=== PATIENT | female | born 1995 | race Caucasian/White ===

== ENCOUNTER 2022-09-01 01:19 | Emergency (ER) | payer SELFPAY ==
[~2022-09-01] VITALS: Ht 160 cm; Wt 64.5 kg
[2022-09-01 02:13] VITALS: BP 119/79
[2022-09-01] MEDS ORDERED: PSYLLIUM SEED PACKET PO ONE (03:00)
[2022-09-01] MEDS ORDERED: FAMOTIDINE 20MG TABLET PO ONE (03:00)
[2022-09-01] MEDS ORDERED: MAGNESIUM/ALUMINUM HYDROXIDE/SIMETHICONE 30ML UDC PO ONE (03:00)
[2022-09-01] MEDS ORDERED: VISCOUS LIDOCAINE 2% 15 ML UDC MM ONE (03:00)
[2022-09-01 03:26] LABS: BASOPHILS % 0.5 % (0.0-2.0); EOSINOPHILS % 0.5 % (0.0-5.0); HEMATOCRIT. 36.7 % (36.0-48.0); HEMOGLOBIN. 12.7 g/dL (12.0-16.0); MEAN CORPUSCULAR VOLUME 95.7 fL (81.0-99.0); MEAN PLATELET VOLUME 8.9 fl (7.4-10.4); MONOCYTES % 7.3 % (2.0-8.0); NEUTROPHILS % 69.7 % (40.0-76.0); PLATELET 179 x1000/uL (130-400); RED BLOOD CELL COUNT 3.84 mill/uL (4.2-5.4); RED CELL DISTRIBUTION WIDTH 12.9 % (11.6-14.6)
[2022-09-01 03:55] LABS: CHLORIDE 107 mEq/L (98-107)
[2022-09-01 04:40] LABS: CLARITY URINE CLEAR (CLEAR); COLOR URINE YELLOW (YELLOW); KETONES URINE TRACE (NEGATIVE); LEUKOCYTE ESTERASE URINE NEGATIVE (NEGATIVE); NITRITE URINE NEGATIVE (NEGATIVE); OCCULT BLOOD URINE NEGATIVE (NEGATIVE); PH URINE 5.5 (4.5-8.0); PROTEIN URINE NEGATIVE (NEGATIVE); SPECIFIC GRAVITY URINE 1.019 (1.005-1.030); UROBILINOGEN URINE 0.2 E.U./dL (0.2-1.0)
[2022-09-01] MEDS ORDERED: LACT10SO6 MT (05:04)
[2022-09-01] MEDS ORDERED: FAMO20TA8 MT (05:04)
== END 2022-09-01 05:13 | disposition home or self-care (01) ==
LOC: ER 01:19
DX: K21.9 Gastro-esophageal reflux disease without esophagitis (principal)
CPT/HCPCS: 36415; 80053; 81003; 81025; 85025; 99283